=== PATIENT | male | born 1980 | race Caucasian/White ===

== ENCOUNTER 2017-06-13 13:23 | Emergency (ER) | payer OTHER ==
[~2017-06-13 13:23] MED LIST: ?ANTIBIOTIC; ALBUTEROL17 GM INH; DOXYCYCLINE PO; FLEXERIL10 MG PO; IBUPROFEN800 MG PO; LORCET HD CAPSU1 CA1 PO; ORUDIS75 M1 PO; PREDNISONE PO; RONDEC-DM ORAL30 ML PO; VICODIN 5/1 TAB 5/50 PO
== END 2017-06-13 14:34 | disposition home or self-care (01) ==
LOC: SED 13:23
DX: S81.812A Laceration without foreign body, left lower leg, initial encounter (principal); F17.200 Nicotine dependence, unspecified, uncomplicated; Y29.XXXA Contact with blunt object, undetermined intent, initial encounter; Y92.9 Unspecified place or not applicable; Z23 Encounter for immunization
CPT/HCPCS: 12001; 90471; 90715; 99283